=== PATIENT | female | born 1980 | race Two or more races ===

== ENCOUNTER 2020-09-05 07:25 | Outpatient (REF) | payer OTHER, SELFPAY ==
[2020-09-05 08:15] LABS: MANUAL DIFF FLAG NO
[2020-09-05 08:37] LABS: Basophils Percent Auto 0.1 % (0-2); Eosinophils Absolute Auto 0.1 X10*3/uL (0.0-0.4); Eosinophils Percent Auto 1.2 % (0-4); Hematocrit 41.2 % (37-47); Hemoglobin 13.3 g/dl (12.0-16.0); Imm Gran Abs Auto 0.03 X10*3/uL (0.00-0.03); Imm Gran Pct Auto 0.4 % (0.0-0.4); Lymphocytes Absolute Auto 1.5 X10*3/uL (1.2-4.9); Lymphocytes Percent Auto 22.2 % (20-40); Mean Corpuscular HGB Conc 32.3 g/dl (31.0-35.0); Mean Corpuscular Volume 86.7 fL (80-98); Mean Platelet Volume 10.4 fL (9.4-12.3); Monocytes Absolute Auto 0.5 X10*3/uL (0.1-1.2); Monocytes Percent Auto 6.5 % (2-11); Neutrophils Absolute Auto 4.8 X10*3/uL (2.0-8.3); Neutrophils Percent Auto 69.6 % (45-73); Platelet Count 272 X10*3/uL (160-400); Red Blood Count 4.75 X10*6/uL (4.20-5.50); Red Cell Distribution Width 13.3 % (11.0-16.0); White Blood Count 6.9 X10*3/uL (4.8-10.8)
[2020-09-05 09:04] LABS: Anion Gap 12 (12-20); Blood Urea Nitrogen 15 mg/dL (9-16); Calcium 8.3 mg/dL (8.4-10.2); Carbon Dioxide 24 mmol/L (22-29); Chloride 109 mmol/L (96-108); Cholesterol 167 mg/dL; Estimated Glomerular Filt Rate > 60; Glucose Fasting 92 mg/dL (60-99); HDL Cholesterol 29 mg/dL; LDL Cholesterol Calculated 104 mg/dl; Potassium 5.3 mmol/l (3.3-5.1); Sodium 140 mmol/L (135-145); Triglycerides 173 mg/dL
[2020-09-05 09:40] LABS: Estimated Average Glucose 111 mg/dL; Hemoglobin A1c % 5.5 %
[2020-09-05 09:50] LABS: HIV AB/AG Nonreactive (Nonreactive); HIV Num 1 0.11 S/CO (0.00-0.99); Hepatitis B Surface Antigen Negative (Negative)
[2020-09-05 09:55] LABS: Syphilis Screen Nonreactive (Nonreactive)
[2020-09-05 13:20] LABS: CT PCR NOT DETECTED (Not Detect.); NG PCR NOT DETECTED (Not Detect.)
[2020-09-06 13:48] LABS: BV Int Neg Control Negative (Negative); BV Int Pos Control Positive (Positive)
== END 2020-09-05 07:26 | disposition home or self-care (01) ==
LOC: HO.LAB 07:25
PROVIDERS: Obstetrics & Gynecology; Visit Provider Nurse Practitioner Family
DX: N75.0 Cyst of Bartholin's gland (principal); R73.03 Prediabetes; E78.00 Pure hypercholesterolemia, unspecified; Z11.3 Encounter for screening for infections with a predominantly sexual mode of transmission; F17.210 Nicotine dependence, cigarettes, uncomplicated
CPT/HCPCS: 36415; 56420; 80048; 80061; 83036; 85025; 86780; 87340; 87389; 87480; 87491; 87510; 87591; 87660; 99212

== ENCOUNTER → 2020-09-08 08:12 | Outpatient (BNVA) | payer OTHER, SELFPAY | PROVIDERS: Visit Provider Obstetrics & Gynecology | DX: Z48.89 Encounter for other specified surgical aftercare (principal); Z48.03 Encounter for change or removal of drains | CPT/HCPCS: 99212 ==

== ENCOUNTER → 2020-09-19 14:54 | Outpatient (BNVA) | payer OTHER, SELFPAY | PROVIDERS: Visit Provider Obstetrics & Gynecology | DX: N75.0 Cyst of Bartholin's gland (principal) | CPT/HCPCS: 99212 ==

== ENCOUNTER 2021-04-07 08:32 | Outpatient (REF) | payer OTHER, SELFPAY ==
[2021-04-07 11:52] LABS: HBsAGNum1 0.19 S/CO (0.00-0.99); Hepatitis B Surface Antigen Negative (Negative); ~HepC Num1 0.06 S/CO (0.00-0.79); ~Hepatitis C Antibody Nonreactive (Nonreactive)
[2021-04-07 12:03] LABS: HIV AB/AG Nonreactive (Nonreactive); HIV Num 1 0.05 S/CO (0.00-0.99)
[2021-04-07 14:28] LABS: CT PCR NOT DETECTED (Not Detect.); NG PCR NOT DETECTED (Not Detect.)
[2021-04-08 08:59] LABS: Syphilis Screen Nonreactive (Nonreactive)
[2021-04-08 09:37] LABS: BV Int Neg Control Negative (Negative); BV Int Pos Control Positive (Positive)
== END 2021-04-07 08:33 | disposition home or self-care (01) ==
LOC: HO.LAB 08:32
PROVIDERS: Obstetrics & Gynecology; Visit Provider Advanced Practice Midwife
DX: Z01.419 Encounter for gynecological examination (general) (routine) without abnormal findings (principal); Z79.899 Other long term (current) drug therapy; Z79.84 Long term (current) use of oral hypoglycemic drugs; N75.0 Cyst of Bartholin's gland; F17.200 Nicotine dependence, unspecified, uncomplicated; R73.01 Impaired fasting glucose; E66.9 Obesity, unspecified; Z98.51 Tubal ligation status; Z98.890 Other specified postprocedural states; Z86.018 Personal history of other benign neoplasm; Z20.2 Contact with and (suspected) exposure to infections with a predominantly sexual mode of transmission
CPT/HCPCS: 36415; 86780; 86803; 87340; 87389; 87480; 87491; 87510; 87591; 87660

== ENCOUNTER 2021-04-22 15:56 | Outpatient (REF) | payer OTHER, SELFPAY ==
--- NOTE | ~2021-04-22 | US_ITS ---
EXAMINATION: PELVIC ULTRASOUND CLINICAL INFORMATION: History of fibroids COMPARISON: None TECHNIQUE: Transabdominal and transvaginal pelvic ultrasound was performed. Transvaginal exam was performed for better visualization of the uterus and ovaries. FINDINGS: The uterus is anteverted and measures 8.7 x 4.7 x 4.7 cm in dimension. No focal uterine lesion. Endometrial thickness is normal measuring 1 cm. There are nabothian cysts in the cervix. Right ovary is normal-appearing and measures 2.7 x 2 x 2.7 cm. Left ovary measures 2.9 x 2.4 x 2.5 cm. There is a small 2 x 1.4 x 1.8 cm simple left ovarian cyst. There is no fluid in the pelvis. US/US pelvic and transvaginal IMPRESSION: Normal-appearing uterus. No fibroids seen. Small simple left ovarian cyst.
== END 2021-04-22 15:57 | disposition home or self-care (01) ==
LOC: HO.US 15:56
PROVIDERS: Visit Provider Advanced Practice Midwife
DX: Z86.018 Personal history of other benign neoplasm (principal); Z98.890 Other specified postprocedural states
CPT/HCPCS: 76830; 76856

== ENCOUNTER 2021-04-23 10:33 | Outpatient (REF) | payer OTHER, SELFPAY ==
[2021-04-27 23:22] LABS: HPV mRNA E6/E7 rflx Not Detected (Not Detected)
== END 2021-04-23 10:34 | disposition home or self-care (01) ==
LOC: HO.LAB 10:33
PROVIDERS: PCP Internal Medicine; Visit Provider Obstetrics & Gynecology
DX: Z01.411 Encounter for gynecological examination (general) (routine) with abnormal findings (principal); Z11.51 Encounter for screening for human papillomavirus (HPV); N93.0 Postcoital and contact bleeding; N76.0 Acute vaginitis; B96.89 Other specified bacterial agents as the cause of diseases classified elsewhere
CPT/HCPCS: 87624; 88142

== ENCOUNTER 2021-05-12 14:03 | Outpatient (REF) | payer OTHER, SELFPAY ==
--- NOTE | ~2021-05-12 | MM_ITS ---
EXAMINATION: MM SCREENING DIGITAL BREAST TOMOSYNTHESIS, BILATERAL CLINICAL INFORMATION: Screening. Asymptomatic. No prior breast imaging. Age 41. No known family history breast cancer. The lifetime risk of breast cancer based on the Tyrer-Cuzick Model is 14%. COMPARISON: None (current study represents initial baseline exam). TECHNIQUE: Digital breast tomosynthesis is performed in both the craniocaudal and mediolateral oblique views along with computer-aided detection (CAD). Synthesized 2D images are generated from the tomosynthesis. Additional left CC view is provided. FINDINGS: There are scattered areas of fibroglandular density (ACR BI-RADS breast composition Category b). There is no significant mass or architectural abnormality. No abnormal calcifications. There are some benign asymmetric fibroglandular tissue posterior outer breasts on CC views. The axilla and skin contours are unremarkable. MM/MM tomosynthesis screening BI IMPRESSION: No mammographic evidence of malignancy. ASSESSMENT: BI-RADS 2: Benign RECOMMENDATION: Routine annual mammography screening. This patient's information was entered into a reminder system with a target due date for their next mammogram.
== END 2021-05-12 14:04 | disposition home or self-care (01) ==
LOC: HO.MAMMO 14:03
PROVIDERS: Visit Provider Advanced Practice Midwife
DX: Z12.31 Encounter for screening mammogram for malignant neoplasm of breast (principal)
CPT/HCPCS: 77063; 77067

== ENCOUNTER 2021-06-04 10:10 | Outpatient (REF) | payer OTHER, SELFPAY | END 2021-06-04 10:11 | disposition home or self-care (01) | LOC: HO.LAB 10:10 | PROVIDERS: PCP Internal Medicine; Visit Provider Obstetrics & Gynecology | DX: N93.0 Postcoital and contact bleeding (principal); F17.210 Nicotine dependence, cigarettes, uncomplicated | CPT/HCPCS: 58100; 88305 ==

== ENCOUNTER → 2021-06-25 14:50 | Outpatient (BNVA) | payer OTHER, SELFPAY | PROVIDERS: PCP Internal Medicine; Visit Provider Obstetrics & Gynecology | DX: N75.0 Cyst of Bartholin's gland (principal); E78.00 Pure hypercholesterolemia, unspecified; E55.9 Vitamin D deficiency, unspecified; R73.01 Impaired fasting glucose; R73.03 Prediabetes; F17.210 Nicotine dependence, cigarettes, uncomplicated; Z88.8 Allergy status to other drugs, medicaments and biological substances | CPT/HCPCS: 56420 ==

== ENCOUNTER 2021-06-25 15:24 | Outpatient (REF) | payer OTHER, SELFPAY | END 2021-06-25 15:25 | disposition home or self-care (01) | LOC: HO.LAB 15:24 | PROVIDERS: PCP Internal Medicine; Visit Provider Internal Medicine | DX: Z20.822 Contact with and (suspected) exposure to COVID-19 (principal) | CPT/HCPCS: C9803; U0003; U0005 ==

== ENCOUNTER → 2021-07-22 15:19 | Outpatient (BNVA) | payer OTHER, SELFPAY | PROVIDERS: PCP Internal Medicine; Visit Provider Obstetrics & Gynecology | DX: N75.0 Cyst of Bartholin's gland (principal) | CPT/HCPCS: 99212 ==

== ENCOUNTER 2022-04-09 12:13 | Outpatient (REF) | payer OTHER, SELFPAY ==
[2022-04-10 05:21] LABS: CT PCR NOT DETECTED (Not Detect.); NG PCR NOT DETECTED (Not Detect.)
[2022-04-10 15:09] LABS: BV Int Neg Control Negative (Negative); BV Int Pos Control Positive (Positive)
== END 2022-04-09 12:14 | disposition home or self-care (01) ==
LOC: HO.LAB 12:13
PROVIDERS: Visit Provider Advanced Practice Midwife
DX: Z01.419 Encounter for gynecological examination (general) (routine) without abnormal findings (principal); Z11.3 Encounter for screening for infections with a predominantly sexual mode of transmission
CPT/HCPCS: 87480; 87491; 87510; 87591; 87660

== ENCOUNTER 2022-05-20 10:27 | Outpatient (REF) | payer OTHER, SELFPAY ==
--- NOTE | ~2022-05-20 | MM_ITS ---
EXAMINATION: MM SCREENING DIGITAL BREAST TOMOSYNTHESIS, BILATERAL CLINICAL INFORMATION: Screening. Asymptomatic. The lifetime risk of breast cancer based on the Tyrer-Cuzick Model is 10.4%. COMPARISON: Mammography: 05/12/2021. TECHNIQUE: Digital breast tomosynthesis is performed in both the craniocaudal and mediolateral oblique views along with computer-aided detection (CAD). Synthesized 2D images are generated from the tomosynthesis. FINDINGS: There are scattered areas of fibroglandular density (ACR BI-RADS breast composition Category b). There is a stable peripheral pattern of the left breast with no new abnormal dominant mass or suspicious grouping of microcalcifications. About the upper outer aspect of the right breast there is a partially circumscribed density approximately 9 cm from nipple with a questioned density with a few calcifications approximately 7 cm from the nipple. Spot compression film is recommended in medial oblique projection as well as a 90 degree magnification mediolateral view. MM/MM tomosynthesis screening BI IMPRESSION: Right breast densities and calcifications for further evaluation. ASSESSMENT: BI-RADS 0: Incomplete - Need Additional Imaging Evaluation RECOMMENDATION: 1. Additional views of the right breast. 2. Targeted ultrasound if warranted after review of the additional views. 3. Radiology department staff will contact the patient for additional imaging. This patient's information was entered into a reminder system with a target due date for their next mammogram.
== END 2022-05-20 10:28 | disposition home or self-care (01) ==
LOC: HO.MAMMO 10:27
PROVIDERS: Visit Provider Internal Medicine
DX: Z12.31 Encounter for screening mammogram for malignant neoplasm of breast (principal)
CPT/HCPCS: 77063; 77067

== ENCOUNTER 2022-05-31 12:59 | Outpatient (REF) | payer OTHER, SELFPAY ==
--- NOTE | ~2022-05-31 | MM_ITS ---
EXAMINATION: MM DIAGNOSTIC DIGITAL BREAST TOMOSYNTHESIS, RIGHT CLINICAL INFORMATION: Recall from screening for question of asymmetric density on calcifications upper outer right breast. COMPARISON: Mammography: 05/20/2022 (BI-RADS 0), 05/12/2021 (BI-RADS 2, baseline). TECHNIQUE: Digital breast tomosynthesis is performed. 2D images are generated from the tomosynthesis. The following views are obtained: Magnification CC, magnification ML x2, spot MLO. FINDINGS: There are scattered areas of fibroglandular density (ACR BI-RADS breast composition Category b). Additional views show fibroglandular pattern similar to baseline exam. No significant mass or architectural abnormality or interval developing density. There are a few calcifications again seen medial right breast, stable from baseline exam. Results are discussed with the patient at time of visit. MM/MM tomosynthesis added views R IMPRESSION: Additional views show no significant changes from prior baseline exam 2020. ASSESSMENT: BI-RADS 2: Benign RECOMMENDATION: Routine annual mammography screening. This patient's information was entered into a reminder system with a target due date for their next mammogram.
== END 2022-05-31 13:00 | disposition home or self-care (01) ==
LOC: HO.MAMMO 12:59
PROVIDERS: PCP Internal Medicine; Visit Provider Internal Medicine
DX: R92.2 Inconclusive mammogram (principal); R92.1 Mammographic calcification found on diagnostic imaging of breast
CPT/HCPCS: 77061; 77065

== ENCOUNTER 2022-07-28 17:48 | Outpatient (REF) | payer OTHER, SELFPAY | END 2022-07-28 17:49 | disposition home or self-care (01) | LOC: HO.LNP 17:48 | PROVIDERS: Visit Provider Internal Medicine | DX: Z13.89 Encounter for screening for other disorder (principal) | CPT/HCPCS: 0241U ==

== ENCOUNTER 2022-07-29 16:29 | Outpatient (REF) | payer OTHER, SELFPAY ==
[2022-07-29 17:30] LABS: Hematocrit 37.7 % (37.0-47.0); Hemoglobin 12.4 g/dl (12.0-16.0); Mean Corpuscular HGB Conc 32.9 g/dl (31.0-35.0); Mean Corpuscular Hemoglobin 27.2 pg (27.0-33.0); Mean Corpuscular Volume 82.7 fL (80.0-98.0); Mean Platelet Volume 9.1 fL (9.4-12.3); Platelet Count 361 X10*3/uL (160-400); Red Blood Count 4.56 X10*6/uL (4.20-5.50); Red Cell Distribution Width 13.2 % (11.0-16.0); White Blood Count 8.3 X10*3/uL (4.8-10.8)
[2022-07-29 17:51] LABS: Alanine Aminotransferase 14 U/L (0-31); Albumin Level 3.9 g/dL (3.5-5.0); Alkaline Phosphatase 64 U/L (39-117); Anion Gap 15 (12-20); Aspartate Amino Transferase 12 U/L (5-31); Bilirubin Total 0.2 mg/dL (0.0-1.0); Blood Urea Nitrogen 12 mg/dL (9-16); Calcium 8.7 mg/dL (8.4-10.2); Carbon Dioxide 24 mmol/L (22-29); Chloride 105 mmol/L (96-108); Cholesterol 149 mg/dL; Estimated Glomerular Filt Rate > 60; Glucose Random 89 mg/dL (60-115); HDL Cholesterol 29 mg/dL; LDL Cholesterol Calculated 87 mg/dl; Potassium 4.1 mmol/L (3.3-5.1); Sodium 140 mmol/L (135-145); Triglycerides 166 mg/dL
[2022-07-29 17:57] LABS: Creatinine Urine 117.04 mg/dL; Microalbum/Creatinine Ratio Ur 5.9 ug/mg cr
[2022-07-29 18:13] LABS: TSH reflex Free T4 0.44 uIU/mL (0.32-4.0); Vitamin D 25-OH Total 30.8 ng/mL (>30)
[2022-07-29 18:23] LABS: Folate 19.6 ng/mL (> or = 4.0); Vitamin B12 495 pg/mL (200-900)
== END 2022-07-29 16:30 | disposition home or self-care (01) ==
LOC: HO.LAB 16:29
PROVIDERS: PCP Internal Medicine; Visit Provider Nurse Practitioner Family
DX: Z00.00 Encounter for general adult medical examination without abnormal findings (principal); R73.03 Prediabetes; E78.00 Pure hypercholesterolemia, unspecified
CPT/HCPCS: 36415; 80053; 80061; 82043; 82306; 82607; 82746; 84443; 85027